=== PATIENT | male | born 1975 | race Caucasian/White ===

== ENCOUNTER → 2024-09-26 14:10 | Outpatient (CLI) | payer OTHER, SELFPAY ==
--- NOTE | 2024-09-26 | DI.MRI.S_ITS ---
PROCEDURE: MR CERVICAL SPINE WO CON INDICATIONS: radicular symptoms in right arm TECHNIQUE: Noncontrast sagittal T1 spin echo and T2 fast spin echo, sagittal STIR, foraminal oblique sagittal T2 fast spin echo, and axial gradient echo or T2 fast spin echo through the cervical spine. COMPARISON: None. FINDINGS: Image quality: Excellent. Alignment and Curvature: Straightening of the normal cervical lordosis. Bone Marrow: Marrow demonstrates normal overall signal. Spinal Cord: Visualized spinal cord has normal size and signal. No cerebellar tonsillar herniation. Paraspinous Soft Tissues: No paravertebral masses. Prevertebral soft tissues are normal in thickness. C2-C3: Normal appearance. C3-C4: Disc desiccation. No significant central canal or neural foraminal stenosis. C4-C5: Disc desiccation. Mild right facet and uncovertebral arthropathy. No significant central canal or neural foraminal stenosis. C5-C6: Disc desiccation and mild posterior disc osteophyte complex. Mild facet and uncovertebral arthropathy. No significant central canal or neural foraminal stenosis. C6-C7: Disc desiccation and minimal posterior disc osteophyte complex. No significant central canal or neural foraminal stenosis. C7-T1: No central canal or neural foraminal stenosis. 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 No significant central canal or neural foraminal stenosis. Approved by: Moo Worley M.D. on 09/27/2024 at 11:47
== END ==
PROVIDERS: PCP Family Medicine; Visit Provider Chiropractor
DX: M47.812 Spondylosis without myelopathy or radiculopathy, cervical region (principal); M54.10 Radiculopathy, site unspecified
CPT/HCPCS: 72141